=== PATIENT | female | born 1970 | race Caucasian/White ===

== ENCOUNTER → 2017-10-02 | Outpatient (CLI) | payer BC ==
--- NOTE | 2017-10-02 11:27 | MM ---
Reason for exam: screening (asymptomatic). Baseline mammogram. History: Patient is postmenopausal. Physical Findings: Nurse did not find any significant physical abnormalities on exam. MG Screening Mammo w CAD Bilateral CC and MLO view(s) were taken. There are scattered fibroglandular densities. A couple nodules in the posterior right upper outer quadrant likely lymph nodes. 6 month follow up can be performed. Otherwise, no discrete abnormality. These results were verbally communicated with the patient and result sheet given to the patient on 10/02/17. ASSESSMENT: Probably benign, BI-RAD 3 RECOMMENDATION: Follow-up diagnostic mammogram of the right breast in 6 months.
--- NOTE | 2017-10-02 12:07 | BD ---
EXAMINATION TYPE: Axial Bone Density DATE OF EXAM: 10/02/2017 COMPARISON: NONE CLINICAL HISTORY: 46-year-old female osteopenia, prior hysterectomy. Height: 5 FT 2 1/4 IN Weight: 164 FRAX RISK QUESTIONS: Family History (Parent hip fracture): NOT KNOWN ADOPTED Secondary Osteoporosis: 3. Menopause before 45: YES Current Tobacco Use: YES RISK FACTORS HISTORY OF: Active: YES Postmenopausal woman: TOTAL HYST AGE 31 MEDICATIONS: Prednisone or other steroids: How Long: Additional Medications: CLONIPIN,XANAX, SEROQUEL Additional History: EXAM MEASUREMENTS: Bone mineral densitometry was performed using the [employer] System. Bone mineral density as measured about the Lumbar spine is: ----- L1-L4(G/cm2): 1.008 T Score Values are as follows: ----- L2: -1.8 ----- L3: -1.3 ----- L4: -1.5 ----- L1-L4: -1.4 BASELINE Bone mineral density about the R hip (g/cm2): 0.792 Bone mineral density about the L hip (g/cm2): 0.741 T Score values are as follows: -----R Neck: -1.8 -----L Neck: -2.1 -----R Total: -1.5 -----L Total: -1.4 BASELINE IMPRESSION: Z scores are utilized given patient's age. Based on Z score values > -2.0, bone density is within th e expected range for the patient's age. However, note that if the patient is postmenopausal, T score values would indicate osteopenia, in [facility] case therapy may be indicated and follow up exam can be performed in 2-5 years. NOTE: T-SCORE=SD OF THE YOUNG ADULT MEAN.
== END | disposition home or self-care (01) ==
LOC: RADBDWWP 08:47
PROVIDERS: ATTEND Family Medicine
DX: Z12.31 Encounter for screening mammogram for malignant neoplasm of breast (principal); M85.80 Other specified disorders of bone density and structure, unspecified site
CPT/HCPCS: 77067; 77080

== ENCOUNTER → 2018-04-07 | Outpatient (CLI) | payer BC ==
--- NOTE | 2018-04-07 09:52 | MM ---
Reason for exam: follow-up at short interval from prior study. Last mammogram was performed 6 months ago. History: Patient is postmenopausal. Physical Findings: Nurse did not find any significant physical abnormalities on exam. MG Diagnostic Mammo RT w CAD CC, ML, and MLO view(s) were taken of the right breast. Prior study comparison: October 02, 2017, bilateral MG screening mammo w CAD. There are scattered fibroglandular densities. There is chronic nodularity in the right breast for 6 month compatible with axillary tail lymph nodes. No significant new findings when compared with previous films. These results were verbally communicated with the patient and result sheet given to the patient on 04/07/18. ASSESSMENT: Benign, BI-RAD 2 RECOMMENDATION: Return to routine screening mammogram schedule for both breasts. Back on schedule for September 2018.
== END | disposition home or self-care (01) ==
LOC: RADMAMWWP 08:46
PROVIDERS: ATTEND Family Medicine
DX: R92.2 Inconclusive mammogram (principal)
CPT/HCPCS: 77065